=== PATIENT | male | born 1960 | race Caucasian/White ===

== ENCOUNTER → 2024-05-17 08:53 | Outpatient (REF) | payer MEDICAID, SELFPAY | LOC: HO.SL 08:53 | PROVIDERS: PCP Family Medicine; Visit Provider Psychiatry & Neurology Neurology | DX: R06.83 Snoring (principal) | CPT/HCPCS: 95806 ==

== ENCOUNTER → 2024-05-17 19:00 | Outpatient (BNV) | payer MEDICAID, SELFPAY | PROVIDERS: PCP Family Medicine; Visit Provider Internal Medicine | DX: R06.83 Snoring (principal); G47.10 Hypersomnia, unspecified | CPT/HCPCS: 95806 ==

== ENCOUNTER 2025-03-03 10:29 | Outpatient (AMB) | payer MEDICAID, SELFPAY ==
--- NOTE | 2025-03-03 10:31 | A.OFFVIS_ITS ---
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 (He started having complex partial, and secondarily generalized seizures in mid- with right hemispheric focus. His seizures included flashes of light, de ja vu feeling, and also generalized convulsions. He was noted to have a right occipital area cerebral lesion, and had epilepsy surgery that did not completely eliminate seizures. It resulted in cognitive difficulties. He also has anxiety disorder, Factor V leidin mutation, and history of DVT and PE.) He is presenting with concerns regarding progressive tremor. The progression of the tremor began with minimal symptoms three months ago, characterized by a slight bopping of the head. The condition has since advanced to substantial shaking in both the head and right arm. Symptoms are aggravated by activities such as driving, where increased stress augments the tremors. Additionally, an increase in nocturnal snoring and throat clearing frequency have been observed, though no episodes of choking have been reported. He is currently on Depakote among other medications to manage symptoms, and he describes emotional stress as a factor that intensifies the tremor. [facility] Medical History (Updated 03/03/25 @ 10:44 by Kristopher Dumont MD) Benign essential tremor Anxiety and depression Mild dementia ARINA on CPAP Epilepsy Encephalomalacia MCI (mild cognitive impairment) Migraine Seizure disorder Surgical History (Updated 02/25/25 @ 08:11 by Pool Moore CMA) S/P craniotomy Review of Systems Const Details: - Neurological: Reports head and right arm tremor; denies choking or difficulties aside from tremor. - Respiratory: Denies issues besides increased throat clearing and worsening snoring at night. - General: Denies green skin, kidney problems, or diabetes; denies metal in the body, pacemaker use, or allergies to contrast. Physical Exam Neuro Other: Mental Status: Alert and oriented to person, place, and time. Normal attention. Normal spontaneous speech, fluency, and comprehension. Cranial Nerves: CN II: Visual jolley full to confrontation, visual acuity intact. CN III, IV, : Pupils equal, round, reactive to light and accommodation. Extraocular movements are normal. CN V: Facial sensation is normal. CN VII: Facial movements symmetrical. CN VIII: Hearing intact to bedside conversation is normal. CN IX, X: Palate elevates symmetrically. CN XI: Shoulder shrug and head turn symmetrical. CN XII: Tongue midline without atrophy or fasciculations. Moderate head and righrt hand/arm tremor, somewhat atypical, both at rest and action, worsens when I pay attention or try to examine him, when it also appears in his left hand. Speech: Normal; no dysarthria or tremor. Assessment & Plan Assessment & Plan (1) Epilepsy: Comment: Meds tried: Depakote, Ox carbamazepine, Dilantin, Neurontin, Tegretal, Home PSG at [facility] in Apr 2024: TST RIVERA 0 CTA brain and neck at [facility] in 2019: No vascular lesion, atrophy MRI brain WWO at [facility] in Jul 2016: Right occipital periventricular encephalomalacia, mild MV MRI C spine at [facility] in Jul 2016: Mild spondylosis Routine EEG at office in May 2016: mildly abnormal, R sharp and slow wave complexes Routine EEG at office in 2010: mildly abnormal, ?left temp irritability Off NS testing in 2023: Mild cognitive dysfunction [place] [facility] [place]: right post medial parietal encephalomalacia Neuropsychological [place] 2006 [place] [facility] mild cognitive impairment nonspecific type. PSG at [facility] sleep disorder clinic in March of 2011: TST RDI 3.3 in REM RID 10.3. Lowest oxygen saturation was 89%. Snoring was light moderate. Code(s): G40.909 - Epilepsy, unspecified, not intractable, without status epilepticus Category: Medical Qualifiers: Epilepsy type: other generalized Intractability: intractable Status epilepticus: without status epilepticus Qualified Code(s): G40.419 - Other generalized epilepsy and epileptic syndromes, intractable, without status epilepticus (2) Depression with anxiety: Code(s): F41.8 - Other specified anxiety disorders Category: Medical (3) Multifactorial dementia: Code(s): F03.90 - Unspecified dementia, unspecified severity, without behavioral disturbance, psychotic disturbance, mood disturbance, and anxiety Category: Medical (4) Tremor: Code(s): R25.1 - Tremor, unspecified Category: Medical Plan Impression: a: Chronic epilepsy with mostly complex partial seizures,s/p right occipital area epilepsy surgery. b: Chronic anxiety and depression c: Tremor, which is somewhat atypical and has progressed in last few months d: Multifactorial cognitive issues. Rec: a: MRI brain to r/o any focal pathology explaing this new tremor b: Depakote level c: Depakote 250mg, 2 in am and 3 at night d: Oxcarbazepine 300mg, two twice a day e: Sertraline 50mg a day Orders: Orders MR head/brain wo/w con Today G40.419 - Other generalized epilepsy and epileptic syndromes, intractable, without status epilepticus, R25.1 - Tremor, unspecified Valproate Today G40.419 - Other generalized epilepsy and epileptic syndromes, intractable, without status epilepticus Liver Panel Today G40.419 - Other generalized epilepsy and epileptic syndromes, intractable, without status epilepticus Medications: New divalproex ER 250 mg orally 2 in am and 3 at night; 450 tabs 0RF Coding Level of Care Code Est Pt Level 5 (89690) Diagnoses Other generalized epilepsy, intractable, without status epilepticus G40.419 Epilepsy type: other generalized Intractability: intractable Status epilepticus: without status epilepticus Depression with anxiety F41.8 Multifactorial dementia F03.90 Tremor R25.1
--- OUTSIDE RECORDS SUMMARY | 2025-03-03 11:03 | XMS_ITS | Clinical Summary ---
Author Organization 175 [facility] Address 175 [place] [address] Phone Care Team Providers Care Interior Paneler Name Role Phone Oswald Stokes MD Primary Care Provider [phone] Allergies Active Allergy Reactions Criticality Noted Date Comments Codeine 01/27/2025 Penicillin 01/27/2025 Medications amLODIPine (NORVASC) 10 mg tablet Take by mouth 1 (one) time each day. Active carvediloL (COREG) 12.5 mg tablet Take by mouth 2 (two) times a day with meals. Active OXcarbazepine (TRILEPTAL) 300 mg tablet Take 1 tablet (300 mg total) by mouth 2 (two) times a day. Active warfarin (COUMADIN) 5 mg tablet Take by mouth 1 (one) time each day with dinner. Active divalproex (DEPAKOTE) [address] tablet Take 1 tablet (500 mg total) by mouth 3 (three) times a day. Do not crush, chew, or split. Active montelukast (SINGULAIR) 10 mg tablet Take 1 tablet (10 mg total) by mouth at bedtime. Active fluticasone furoate-vilanter oL (Breo Ellipta) 200-25 mcg/dose inhaler Inhale 1 puff by mouth 1 (one) time each day. 3 each 3 01/10/2025 5 Active umeclidinium (Incruse Ellipta) 62.5 mcg/actuation inhalation Inhale 1 puff by mouth 1 (one) time each day. 3 each 4 01/24/2025 6 Active sertraline (ZOLOFT) 50 mg tablet Take 1 tablet (50 mg total) by mouth 1 (one) time each day. Active albuterol HFA (Ventolin HFA) 90 mcg/actuation inhaler Inhale 2 puffs by mouth every 6 (six) hours if needed for wheezing. 6.7 g 11 01/27/2025 Active albuterol (PROVENTIL,ALEJANDRA JAYSHREE) 2 mg/5 mL syrup Take 5 mL (2 mg total) by mouth 4 (four) times a day. 1 mL 3 01/27/2025 Active Active Problems Problem Noted Date Diagnosed Date Asthma 12/23/2024 Parkinson's disease ([facility] V24, [facility] V28) 0 12/23/2024 Seizure ([facility] [place]24, [facility] V28) 12/23/2024 Thromboembolic disorder ([facility] V24, [facility] V2 8) 12/23/2024 Obesity 12/23/2024 Encounters Date Type Department Care Team Description 01/27/2025 1:15 PM EDT [facility] [address] [phone] Selena Elias MD Severe asthma without complication, unspecified whether persistent (Primary Dx); Recurrent pulmonary embolism ([facility] V24, [facility] V28); Class 1 obesity due to excess calories without serious comorbidity with body mass index (BMI) of 30.0 to 30.9 in adult; Primary hypertension [facility] [address] [phone] Selena Elias MD Med Refill [facility] [address] [phone] Selena Elias MD Medication Problem 12/23/[address] [phone] Consuelo Schuster MA Abstraction from Last 3 Months Social History Tobacco Use Types Packs/Day Years Used Date Smoking Tobacco: Never Assessed Sex and Gender Information Value Date Recorded Sex Assigned at Not on file Legal Sex Male 3:16 AM EST Gender Identity Not on file Sexual Orientation Not on file Last Filed Vital Signs Vital Sign Reading Time Taken Comments Blood Pressure 144/82 01/27/2025 1:09 PM EDT Pulse 70 01/27/2025 1:09 PM EDT Temperature 36.2 C (97.2 F) 01/27/2025 1:09 PM EDT Respiratory Rate - - Oxygen Saturation 99% 01/27/2025 1:09 PM EDT Inhaled Oxygen Concentration - - Weight 99.3 kg (219 lb) 01/27/2025 1:09 PM EDT Height 175.3 cm (5' 9 ) 01/27/2025 1:09 PM EDT Body Mass Index 32.34 01/27/2025 1:09 PM EDT Plan of Treatment Upcoming Encounters Date Type Department Care Team ([facility] st Contact Info) Description 04/28/2025 1:45 PM EDT Office Visit Pulmonolgy - [address] [phone] Selena Elias MD [address] [address] Health Maintenance Due Date Last Done Comments Zoster Vaccines (1 of 2) 2010 Pneumococcal Vaccine: 50+ Years (2 of 2 - PCV) 12/25/2013 12/25/2012, 03/15/2007 RSV Immunization Adult Patients (1 - Risk 60-74 years 1-dose series) 2020 COVID-19 Vaccine ( season) 2024 09/08/2021, 11/13/2020, 10/23/2020, Additional history exists Depression Screening 07/28/2024 DTaP,Tdap,and Td Vaccines (2 - Td or Tdap) 08/04/2024 08/04/2014 Cholesterol Screening (Lipid Panel) 12/09/2024 Colorectal Cancer Screening: Colonoscopy 12/09/2024 HIV Screening 12/09/2024 Hepatitis C Screening 12/09/2024 Medicare Annual Wellness Visit 12/09/2024 Social Influencers of Health Screening 12/09/2024 Hypertension/CHF/CAD Annual BMP Blood Test 01/27/2025 Influenza Vaccine (#1) 2025 4, 04/22/2022, 05/16/2021, Additional history exists HIB Vaccines Aged Out No longer eligi ble based on patient's age to complete this topic HPV Vaccines Aged Out No longer eligi ble based on patient's age to complete this topic Hepatitis A Vaccines Aged Out No long er eligible based on patient's age to complete this topic Hepatitis B Vaccines Aged Out No long er eligible based on patient's age to complete this topic IPV Vaccines Aged Out No longer eligi ble based on patient's age to complete this topic MMR Vaccines Aged Out No longer eligi ble based on patient's age to complete this topic Meningococcal ACWY Vaccine Aged Out N o longer eligible based on patient's age to complete this topic Meningococcal B Vaccine Aged Out No l onger eligible based on patient's age to complete this topic RSV Immunization Patients Under 20 months Aged Out No longer eligible based on patient's age to complete this topic Varicella Vaccines Aged Out No longer eligible based on patient's age to complete this topic Insurance [place] Care Teams Interior Paneler Relationship Specialty Start Date End Date Oswald Stokes MD [address] [place] [address] PCP - General Family Medicine 01/27/25
--- OUTSIDE RECORDS SUMMARY | 2025-03-03 11:03 | XMS_ITS | Clinical Summary ---
Author Organization [facility] Address [address] [place] [address] Care Team Providers Care Comb Setter Name Role Phone Unavailable Primary Care Provider Unavailabl e Source Comments PLEASE NOTE, if this patient is a minor, it may be UNLAWFUL to discuss sensitive information that is contained in these records (such as FAMILY PLANNING, MENTAL HEALTH or SUBSTANCE ABUSE) with the minor patient's parent or other person without the patient's specific authorization.[facility] Immunizations Immunization Administration Dates Next Due Moderna COVID-19 Vaccine, re d cap blue label, 12+ Primary Series 11/13/2020,10/16/2020 Social History Tobacco Use Types Packs/Day Years Used Date Smoking Tobacco: Never Assessed Social Connections Answer Date Recorded Social Connections and Isolation 0 10/16/2020 Financial Resource Strain Answer Date R ecorded Financial Resource Strain 0 2020 Stress Answer Date Recorded Stress 0 10/16/2020 Physical Activity Answer Date Recorded Physical Activity 0 10/16/2020 Food Insecurity Answer Date Recorded Food 0 10/16/2020 Transportation Needs Answer Date Record ed Transportation 0 10/16/2020 Housing Stability Answer Date Recorded Housing 0 10/16/2020 Safety and Environment Answer Date Wilver rded Safety 0 10/16/2020 Utilities Answer Date Recorded Utilities 0 10/16/2020 Employment Answer Date Recorded Employment 0 10/16/2020 Sex and Gender Information Value Date Recorded Sex Assigned at Not on file Legal Sex Male 11:13 AM PDT Gender Identity Not on file Sexual Orientation Not on file Plan of Treatment Health Maintenance Due Date Last Done Comments Anxiety Screening 1960 Diabetes Screening 1960 Hepatitis C Screening 1960 Lipid Screening 1960 Tobacco Screening 1960 HIV Screening 1975 Hypertension Screening (#1) 1978 Medicare Annual Wellness Visit 1978 Imm-DTaP/Tdap/Td (1 - Tdap) 1979 CT Colonography 2005 Colonoscopy 2005 Colorectal Cancer Screening 2005 FIT/gFOBT 2005 Fecal DNA 2005 Flexible Sigmoidoscopy 2005 Imm-Pneumococcal 50+ (1 of 1 - PCV) 2010 Imm-Zoster, Recombinant (1 of 2) 2010 Cdq-[id number] (3 - season) 03/28/202411/13/ 021, 10/16/2020 Alcohol and Drug Screen 07/28/2024 Depression Annual Screen 07/28/2024 Imm-Influenza (#1) 2025 [place]
--- OUTSIDE RECORDS SUMMARY | 2025-03-03 11:03 | XMS_ITS | Encounter Summary ---
Author Organization [facility], Address [address] [place] [address] Phone Care Team Providers Care Shuttle Truck Driver Name Role Phone Oswald Stokes MD Primary Care Provider +1- [phone] Encounter Details Date Type Department Care Team (Late st Contact Info) Description 10/17/2023 Documentation Only [facility], [address] [place] [address] Nela Patterson [address] [place] [address] Social History Tobacco Use Types Packs/Day Years Used Date Smoking Tobacco: Never Smokeless Tobacco: Never Alcohol Use Standard Drinks/Week Comments No 0 (1 standard drink = 0.6 oz pur e alcohol) Sex and Gender Information Value Date Recorded Sex Assigned at Not on file Legal Sex Male 4:37 PM EST Gender Identity Not on file Sexual Orientation Not on file documented as of this encounter Plan of Treatment Not on file documented as of this encounter Visit Diagnoses Not on filedocumented in this encounter Care Teams Shuttle Truck Driver Relationship Specialty Start Date End Date Oswald Stokes MD [address] [facility] [place] [address] PCP - General Family Medicine 07/17/21 documented as of this encounter
== END 2025-03-03 10:55 | disposition home or self-care (01) ==
LOC: HO.HSM 10:30
PROVIDERS: PCP Family Medicine; Referring Provider Family Medicine; Visit Provider Psychiatry & Neurology Neurology
DX: G40.419 Other generalized epilepsy and epileptic syndromes, intractable, without status epilepticus (principal); F41.8 Other specified anxiety disorders; F03.90 Unspecified dementia, unspecified severity, without behavioral disturbance, psychotic disturbance, mood disturbance, and anxiety; R25.1 Tremor, unspecified
CPT/HCPCS: 99214

== ENCOUNTER 2025-03-03 10:29 | Outpatient (REF) | payer MEDICAID, SELFPAY ==
[2025-03-03 12:23] LABS: Alanine Aminotransferase 53 U/L (0-40); Albumin Level 4.4 g/dL (3.5-5.0); Alkaline Phosphatase 200 U/L (39-117); Aspartate Amino Transferase 44 U/L (5-37); Total Protein 7.5 g/dL (6.5-8.0)
== END 2025-03-03 10:30 | disposition home or self-care (01) ==
LOC: HO.LAB 10:29
PROVIDERS: PCP Family Medicine; Referring Provider Family Medicine; Visit Provider Psychiatry & Neurology Neurology
DX: G40.419 Other generalized epilepsy and epileptic syndromes, intractable, without status epilepticus (principal); F41.8 Other specified anxiety disorders; F03.94 Unspecified dementia, unspecified severity, with anxiety; R25.1 Tremor, unspecified
CPT/HCPCS: 36415; 80076; 80164; 99212

== ENCOUNTER 2025-03-11 18:32 | Outpatient (REF) | payer MEDICAID, SELFPAY ==
--- NOTE | ~2025-03-11 | MR_ITS ---
EXAMINATION: MR BRAIN WITHOUT AND WITH CONTRAST CLINICAL INFORMATION: Generalized epilepsy COMPARISON: MRI from an outside institution dated 05/22/2018. TECHNIQUE: Multiplanar, multisequence MRI of the brain was obtained before and after the intravenous administration of 10.0 mL gadolinium based without reported immediate complications. FINDINGS: No restricted diffusion. No intra-axial or extra-axial enhancing mass nor abnormal enhancement. There is a focal encephalomalacia, right midline splenium corpus callosum extending into the deep periventricular white matter right parietal/right precuneus. There is hyperintense T2 FLAIR signal extending from the right midline splenium corpus callosum to the deep white matter right parietal lobe and ex vacuo dilatation of the right atrium and the occipital horn right lateral ventricle. No acute intracranial hemorrhage, mass effect, midline shift, hydrocephalus or herniation. Bilateral multifocal patchy and confluent deep periventricular white matter hyperintense T2 FLAIR signal involving centrum semiovale and mercado radiata. Rick-white matter differentiation is normal. Old lacunar infarct, pulvinar , right thalamus. Prominence of the extra-axial CSF spaces cerebral sulci and ventricles likely central volume loss. Flow-void signal within the main cerebral vessels is normal. No signal abnormality or gross volume loss in the hippocampi. Sellar/suprasellar region demonstrated no signal abnormality or enhancing lesion. Normal position of the cerebellar tonsils. MR/MR head/brain wo/w con IMPRESSION: Encephalomalacia and likely wallerian degeneration, right midline splenium corpus callosum none into the white matter right parietal/right precuneus. Consider prior vascular insult. No abnormal enhancement. No acute stroke/nonhemorrhagic ischemia. Small vessel occlusive disease. Global cerebral atrophy. Electronically signed by: Manoj Hurtado MD 03/14/2025 07:34 AM EDT
--- OUTSIDE RECORDS SUMMARY | 2025-03-11 18:34 | XMS_ITS | Clinical Summary ---
Author Organization 175 [facility] Address [address] [place] [address] Phone Care Team Providers Care Public Address System Installer Name Role Phone Oswald Stokes MD Primary Care Provider +1- [phone] Allergies Active Allergy Reactions Criticality Noted Date [...] Date Diagnosed Date Asthma 12/23/2024 Parkinson's disease ([facility] V24, [facility] V28) 0 12/23/2024 Seizure ([facility] V24, [facility] V28) 12/23/2024 Thromboembolic disorder ([facility] V24, [facility] V2 8) 12/23/2024 Obesity 12/23/2024 Encounters Date Type Department Care Team Description 01/27/2025 1:15 PM EDT [facility] [address] [phone] Selena Elias MD Severe asthma without complication, unspecified whether persistent (Primary Dx); Recurrent pulmonary embolism ([facility] V24, [facility] V28); Class 1 obesity due to excess calories without serious comorbidity with body mass index (BMI) of 30.0 to 30.9 in adult; Primary hypertension [facility] [address] [phone] Selena Elias MD Med Refill [facility] [address] [phone] Selena Elias MD Medication Problem 12/23/[address] [phone] Consuelo Schuster MA Abstraction from [...] Upcoming Encounters Date Type Department Care Team ([facility] st Contact Info) Description 04/28/2025 1:45 PM EDT Office Visit Pulmonolgy - [address] [phone] Selena Elias MD [address] [address] Health Maintenance Due Date Last Done Comments [...] [place] Care Teams Public Address System Installer Relationship Specialty Start Date End Date Oswald Stokes MD [address] [place] [address] PCP - General Family Medicine 01/27/25
--- OUTSIDE RECORDS SUMMARY | 2025-03-11 18:34 | XMS_ITS | Clinical Summary ---
Author Organization [facility] Address [address] [place] [address] Care Team Providers Care Barrel Turner Name Role Phone Unavailable Primary Care Provider [...] 2010 Imm-Zoster, Recombinant (1 of 2) 2010 [id number]-37 (3 - season) 03/28/202411/13/ 021, 10/16/2020 Alcohol and Drug Screen 07/28/2024 Depression Annual Screen 07/28/2024 Imm-Influenza (#1) 2025 [place]
--- OUTSIDE RECORDS SUMMARY | 2025-04-07 20:00 | XMS_ITS | Clinical Summary ---
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 [id number] MEDICARE - NGS [place] - PDGM [id number] Problems Condition Name Condition Details Condition Category [...] 10 mg tablet 04-26 00:00: 00 Yes [id number] 1 tablet DAILY 1 tablet DAILY (route: oral) Alternate Route: PO. Med Classific ation: Cardiovas cular Therapy Agents Breo Ellipta 200 mcg-25 mcg/dose powder for inhalation 2018-07 00:00: 00 Yes [id number] 1 inhalat ion DAILY 1 inhalation DAILY (route: inhalation ) Med Classific ation: Respirato ry Therapy Agents carvedilol 12.5 mg tablet 9-30 00:00: 00 Yes [id number] 1 tablet 2 TIMES DAILY 1 tablet 2 TIMES DAILY (route: oral) Alternate Route: PO. Med Classific ation: Cardiovas cular Therapy Agents divalproex 250 mg tablet,foreign yed release 2-12 00:00: 00 Yes [id number] Per instruc tions TWICE DAILY Per instructio ns TWICE DAILY (route: oral) Med Classific ation: Central Nervous System Agents oxcarbazepi ne 300 mg tablet 03-30 00:00: 00 06-04 23:59 :00 No [id number] Per instruc tions 2 TIMES DAILY Per instructio ns 2 TIMES DAILY (route: oral) Alternate Route: PO. Med Classific ation: Central Nervous System Agents warfarin 5 mg tablet 01-31 00:00: 00 05-03 23:59 :00 No [id number] Per instruc tions DIRECTED Per instructio ns DIRECTED (route: oral) Med Classific ation: Hematolog ical Agents warfarin 1 mg tablet 01-31 00:00: 00 05-03 23:59 :00 No [id number] Per instruc tions DIRECTED Per instructio ns DIRECTED (route: oral) Med Classific ation: Hematolog ical Agents warfarin 1 mg tablet 2019-07 0 00:00: 00 02-26 23:59 :00 No [id number] Per instruc tions DAILY Per instructio ns DAILY (route: oral) Med Classific ation: Hematolog ical Agents warfarin 5 mg tablet 2019-07 0- 00:00: 00 02-26 23:59 :00 No [id number] Per instruc tions DAILY Per instructio ns DAILY (route: oral) Med Classific ation: Hematolog ical Agents montelukast 10 mg tablet 2019-07 00:00: 00 Yes [id number] 1 tablet DAILY 1 tablet DAILY (route: oral) Med Classific ation: Respirato ry Therapy Agents Spiriva Respimat 1.25 mcg/actuati on solution for inhalation 2019-07 00:00: 00 12-08 23:59 :00 No [id number] 2 puff DAILY 2 puff DAILY (route: inhalation ) Med Classific ation: Respirato ry Therapy Agents Aspirin Childrens 81 mg chewable tablet 09-02 00:00: 00 04-26 23:59 :00 No [id number] 1 tablet DAILY 1 tablet DAILY (route: oral) Med Classific ation: Hematolog ical Agents atorvastati n 40 mg tablet 2020-07 00:00: 00 Yes [id number] 1 tablet BEDTIME 1 tablet BEDTIME (route: oral) Med Classific ation: Cardiovas cular Therapy Agents sertraline 25 mg tablet 02-19 00:00: 00 07-13 23:59 :00 No [id number] 1 tablet DAILY 1 tablet DAILY (route: oral) Med Classific ation: Central Nervous System Agents oxcarbazepi ne 300 mg tablet 2021-07 00:00: 00 Yes [id number] 2 tablet 2 TIMES DAILY 2 tablet 2 TIMES DAILY (route: oral) Med Classific ation: Central Nervous System Agents warfarin 5 mg tablet 12-15 00:00: 00 12-21 23:59 :00 No [id number] 1 tablet BEDTIME 1 tablet BEDTIME (route: oral) Med Classific ation: Hematolog ical Agents warfarin 5 mg tablet 16 00:00: 00 02-09 23:59 :00 No [id number] 1.5 tablet DIRECTED 1.5 tablet DIRECTED (route: oral) Med Classific ation: Hematolog ical Agents warfarin 5 mg tablet 17 00:00: 00 02-15 23:59 :00 No [id number] 1 tablet DAILY 1 tablet DAILY (route: oral) Med Classific ation: Hematolog ical Agents warfarin 5 mg tablet 8-02 00:00: 00 03-08 23:59 :00 No [id number] 1 tablet BEDTIME 1 tablet BEDTIME (route: oral) Med Classific ation: Hematolog ical Agents warfarin 5 mg tablet 8-13 00:00: 00 03-18 23:59 :00 No [id number] 1 tablet BEDTIME 1 tablet BEDTIME (route: oral) Med Classific ation: Hematolog ical Agents warfarin 5 mg tablet 8-27 00:00: 00 04-05 23:59 :00 No [id number] 1 tablet DAILY 1 tablet DAILY (route: oral) Med Classific ation: Hematolog ical Agents warfarin 5 mg tablet 2023-07 0- 00:00: 00 05-25 23:59 :00 No [id number] 1 tablet DAILY 1 tablet DAILY (route: oral) Med Classific ation: Hematolog ical Agents warfarin 5 mg tablet 2023-07 0-29 00:00: 00 06-07 23:59 :00 No [id number] 1 tablet DAILY 1 tablet DAILY (route: oral) Med Classific ation: Hematolog ical Agents warfarin 5 mg tablet 2023-07 2-03 00:00: 00 09-01 23:59 :00 No [id number] Per instruc tions DIRECTED Per instructio ns DIRECTED (route: oral) Med Classific ation: Hematolog ical Agents sertraline 25 mg tablet 2023-07 2-16 00:00: 00 Yes [id number] 1 tablet 2 TIMES DAILY 1 tablet 2 TIMES DAILY (route: oral) Med Classific ation: Central Nervous System Agents warfarin 5 mg tablet 2-05 00:00: 00 11-24 23:59 :00 No [id number] 1 tablet DAILY 1 tablet DAILY (route: oral) Med Classific ation: Hematolog ical Agents warfarin 2.5 mg tablet 5-02 00:00: 00 11-30 23:59 :00 No 1 tablet EVERY PM 1 tablet EVERY PM (route: oral) Med Classific ation: Hematolog ical Agents warfarin 5 mg tablet 4-30 00:00: 00 11-25 23:59 :00 No 1.5 tablet EVERY PM 1.5 tablet EVERY PM (route: oral) Med Classific ation: Hematolog ical Agents warfarin 5 mg tablet 02 00:00: 00 11-30 23:59 :00 No 1 tablet EVERY PM 1 tablet EVERY PM (route: oral) Med Classific ation: Hematolog ical Agents warfarin 5 mg tablet 12-01 00:00: 00 12-01 23:59 :00 No [id number] 7.5 mg EVERY PM 7.5 mg EVERY PM (route: oral) Med Classific ation: Hematolog ical Agents warfarin 5 mg tablet 08 00:00: 00 12-07 23:59 :00 No [id number] 1 tablet EVERY PM 1 tablet EVERY PM (route: oral) Med Classific ation: Hematolog ical Agents Incruse Ellipta 62.5 mcg/actuati on powder for inhalation 16 00:00: 00 Yes [id number] 1 inhalat ion DAILY 1 inhalation DAILY (route: inhalation ) Med Classific ation: Respirato ry Therapy Agents warfarin 5 mg tablet - 00:00: 00 12-22 23:59 :00 No [id number] 1.5 tablet EVERY PM 1.5 tablet EVERY PM (route: oral) Med Classific ation: Hematolog ical Agents warfarin 5 mg tablet 12-16 00:00: 00 12-21 23:59 :00 No [id number] 1 tablet EVERY PM 1 tablet EVERY PM (route: oral) Med Classific ation: Hematolog ical Agents warfarin 5 mg tablet 12-22 00:00: 00 12-22 23:59 :00 No 1.5 tablet DIRECTED 1.5 tablet DIRECTED (route: oral) Med Classific ation: Hematolog ical Agents warfarin 5 mg tablet 12-23 00:00: 00 12-28 23:59 :00 No 1 tablet DIRECTED 1 tablet DIRECTED (route: oral) Med Classific ation: Hematolog ical Agents warfarin 5 mg tablet 0 6-04 00:00: 00 12-29 23:59 :00 No [id number] 1.5 tablet EVERY PM 1.5 tablet EVERY PM (route: oral) Med Classific ation: Hematolog ical Agents warfarin 5 mg tablet 0 6-05 00:00: 00 01-04 23:59 :00 No [id number] 1 tablet EVERY PM 1 tablet EVERY PM (route: oral) Med Classific ation: Hematolog ical Agents warfarin 5 mg tablet 0 6-18 00:00: 00 01-18 23:59 :00 No [id number] 1 tablet EVERY PM 1 tablet EVERY PM (route: oral) Med Classific ation: Hematolog ical Agents warfarin 5 mg tablet 0 6-25 00:00: 00 01-25 23:59 :00 No [id number] 1 tablet EVERY PM 1 tablet EVERY PM (route: oral) Med Classific ation: Hematolog ical Agents warfarin 5 mg tablet 0 7-02 00:00: 00 01-27 23:59 :00 No [id number] 1.5 tablet EVERY PM 1.5 tablet EVERY PM (route: oral) Med Classific ation: Hematolog ical Agents warfarin 5 mg tablet 0 7-04 00:00: 00 02-01 23:59 :00 No [id number] 1 tablet EVERY PM 1 tablet EVERY PM (route: oral) Med Classific ation: Hematolog ical Agents warfarin 5 mg tablet 0 7-09 00:00: 00 02-02 23:59 :00 No [id number] 1.5 tablet EVERY PM 1.5 tablet EVERY PM (route: oral) Med Classific ation: Hematolog ical Agents warfarin 5 mg tablet 0 7-10 00:00: 00 02-08 23:59 :00 No [id number] 1 tablet EVERY PM 1 tablet EVERY PM (route: oral) Med Classific ation: Hematolog ical Agents warfarin 5 mg tablet 0 7-16 00:00: 00 02-15 23:59 :00 No [id number] 1 tablet EVERY PM 1 tablet EVERY PM (route: oral) Med Classific ation: Hematolog ical Agents warfarin 5 mg tablet 02-16 00:00: 00 03-03 23:59 :00 No [id number] 1.5 tablet EVERY PM 1.5 tablet EVERY PM (route: oral) Med Classific ation: Hematolog ical Agents warfarin 5 mg tablet 02-17 00:00: 00 02-22 23:59 :00 No [id number] 1 tablet EVERY PM 1 tablet EVERY PM (route: oral) Med Classific ation: Hematolog ical Agents warfarin 5 mg tablet 02-23 00:00: 00 03-01 23:59 :00 No [id number] 1 tablet EVERY PM 1 tablet EVERY PM (route: oral) Med Classific ation: Hematolog ical Agents warfarin 5 mg tablet 8- 00:00: 00 03-08 23:59 :00 No [id number] 1 tablet EVERY PM 1 tablet EVERY [...] ation: RESPIRATO RY THERAPY AGENTS MUCINEX ORAL 0 4-12 00:00: 00 01-31 00:00 :00 No 600 mg1 tab EVERY 12 HOURS 600 mg1 tab EVERY 12 HOURS (route: ) Med Classific ation: RESPIRATO RY THERAPY AGENTS Vital Signs Vital Name Observation Time Observation Value Commen ts Temperature 2025-03-09 10:29:00.000 97.6 [degF] Temperature 2025-03-02 12:37:00.000 97.8 [degF] Temperature 2025-02-23 12:56:00.000 98.7 [degF] Temperature 2025-02-16 08:16:00.000 97.4 [degF] Temperature 2025-02-09 10:40:00.000 97.5 [degF] Pulse 2025-03-09 10:29:00.000 59 /min Pulse 2025-03-02 12:37:00.000 61 /min Pulse 2025-02-23 12:56:00.000 96 /min Pulse 2025-02-16 08:16:00.000 71 /min Pulse 2025-02-09 10:40:00.000 61 /min O2 Saturation (%) 2025-03-09 10:33:00.000 96 % O2 Saturation (%) 2025-03-02 12:39:00.000 95 % O2 Saturation (%) 2025-02-23 12:56:00.000 96 % O2 Saturation (%) 2025-02-16 08:16:00.000 95 % O2 Saturation (%) 2025-02-09 10:40:00.000 96 % Respirations 2025-03-09 10:29:00.000 18 /min Respirations 2025-03-02 12:37:00.000 18 /min Respirations 2025-02-23 12:56:00.000 18 /min Respirations 2025-02-16 08:16:00.000 18 /min Respirations 2025-02-09 10:40:00.000 18 /min Systolic Blood Pressure 2025-03-09 10:29:00.000 122 mm [Hg] Systolic Blood Pressure 2025-03-02 12:40:00.000 122 mm [Hg] Systolic Blood Pressure 2025-02-23 12:56:00.000 110 mm [Hg] Systolic Blood Pressure 2025-02-16 08:18:00.000 120 mm [Hg] Systolic Blood Pressure 2025-02-09 10:43:00.000 132 mm [Hg] Diastolic Blood Pressure 2025-03-09 10:29:00.000 [...] Scheduled Test SKILLED NU RSE TO ASSESS PATIENTS PSYCHOSOCIAL STATUS TO IDENTIFY POTENTIAL ISSUES THAT MAY COMPLICATE THE PROVISION OF THE PLAN OF CARE INCLUDING THE PATIENTS ABILITY TO ACCESS COMMUNITY RESOURCES AND PSYCHOSOCIAL SUPPORT SERVICES. [code = SKILLED NURSE TO ASSESS PATIENTS PSYCHOSOCIAL STATUS TO IDENTIFY POTENTIAL ISSUES THAT MAY COMPLICATE THE PROVISION OF THE PLAN OF CARE INCLUDING THE PATIENTS ABILITY TO ACCESS COMMUNITY RESOURCES AND PSYCHOSOCIAL SUPPORT SERVICES.] Future Scheduled Test SKILLED NU RSE WILL MAINTAIN SITUATIONAL AWARENESS FOR SAFETY AND WILL NOTIFY CLINICAL WASHER MEAT AND PHYSICIAN/PROVIDER WITH ANY CHANGE IN CONDITION. [code = SKILLED NURSE WILL MAINTAIN SITUATIONAL AWARENESS FOR SAFETY AND WILL NOTIFY CLINICAL WASHER MEAT AND PHYSICIAN/PROVIDER WITH ANY CHANGE IN CONDITION.] Goal 2019-07-06 Patient Goal - B E ABLE TO TAKE MEDICATIONS Goal 2019-09-07 Patient Goal - B E ABLE TO TAKE MEDICATIONS Goal 2019-11-02 Patient Goal [...] ABLE TO REMEMBER TO TAKE MEDICATIONS Goal 2024-04-13 Patient Goal [...] ABLE TO REMEMBER TO TAKE MEDICATIONS Goal Patient Goal - B E ABLE TO REMEMBER TO TAKE MEDICATIONS Goal Provider Goal - A PLAN OF CARE WILL BE ESTABLISHED THAT MEETS PATIENT'S NURSING HOME NEEDS AND INCLUDES PATIENT GOAL FOR HOME [...] SELF AND OTHERS THROUGHOUT THE CERTIFICATION PERIOD. Encounters Start Date/Time End Date/Time Encounter Type Admission Type Attending Clinicians Care Facility Care Department Encounter ID Discharge Date Discharge Status Discharge Condition Discharge Reason Percent Goals Met 2025-02-08 00:00:00 2025-04-08 00:00:00 Outpatient RECERTIFIC ATION [facility]IQUIS [facility] [id number] 51.85
== END 2025-03-11 18:33 | disposition home or self-care (01) ==
LOC: HO.MRI 18:32
PROVIDERS: PCP Family Medicine; Visit Provider Psychiatry & Neurology Neurology
DX: G40.419 Other generalized epilepsy and epileptic syndromes, intractable, without status epilepticus (principal); R25.1 Tremor, unspecified
CPT/HCPCS: 70553; A9585

== ENCOUNTER → 2025-03-11 18:38 | Outpatient (BNV) | payer MEDICAID, SELFPAY | PROVIDERS: PCP Family Medicine; Visit Provider Radiology Diagnostic Radiology | DX: G93.89 Other specified disorders of brain (principal); I67.82 Cerebral ischemia | CPT/HCPCS: 70553 ==

== ENCOUNTER 2025-04-07 15:30 | Outpatient (AMB) | payer MEDICAID, SELFPAY ==
--- NOTE | 2025-04-07 15:34 | A.OFFVIS_ITS ---
Intake Visit Reasons: mri follow up Allergies No Known Allergies Allergy (Verified 02/25/25 08:11) HPI Comments Details: 65 y/o man with chronic intractable epilepsy comprising complex partial and generalized, likely secondary generalized, seizures, s/p epilepsy surgery, chronic anxiety and depression, and multifactorial cognitive dysfunction. (He started having complex partial, and secondarily generalized seizures in mid- with right hemispheric focus. His seizures included flashes of light, de ja vu feeling, and also generalized convulsions. He was noted to have a right occipital area cerebral lesion, and had epilepsy surgery that did not completely eliminate seizures. It resulted in cognitive difficulties. He also has anxiety disorder, Factor V leidin mutation, and history of DVT and PE.) [facility] Medical History (Updated 04/07/25 @ 15:42 by Kristopher Dumont MD) Benign essential tremor Anxiety and depression Mild dementia ARINA on CPAP Epilepsy Encephalomalacia MCI (mild cognitive impairment) Migraine Seizure disorder Surgical History (Updated 02/25/25 @ 08:11 by Pool Moore CMA) S/P craniotomy Physical Exam Neuro Other: Mental Status: Alert and oriented to person, place, and time. Normal attention. Normal spontaneous speech, fluency, and comprehension. Cranial Nerves: CN II: Visual jolley full to confrontation, visual acuity intact. CN III, IV, : Pupils equal, round, reactive to light and accommodation. Extraocular movements are normal. CN V: Facial sensation is normal. CN VII: Facial movements symmetrical. CN VIII: Hearing intact to bedside conversation is normal. CN IX, X: Palate elevates symmetrically. CN XI: Shoulder shrug and head turn symmetrical. CN XII: Tongue midline without atrophy or fasciculations. Extrapyramidal: Full facial expressions and blinking. No rigidity. Movements are appropriate with no tremor or abnormality. Speech: Normal; no dysarthria or tremor. Assessment & Plan Assessment & Plan (1) Epilepsy: Comment: Meds tried: Depakote, Ox carbamazepine, Dilantin, Neurontin, Tegretal, MRI brain WO at [facility] in Feb 2025: No new lesion Home PSG at [facility] in Apr 2024: TST RIVERA 0 CTA brain and neck at [facility] in 2019: No vascular lesion, atrophy MRI brain WWO at [facility] in Jul 2016: Right occipital periventricular encephalomalacia, mild MV MRI C spine at [facility] in Jul 2016: Mild spondylosis Routine EEG at office in May 2016: mildly abnormal, R sharp and slow wave complexes Routine EEG at office in 2010: mildly abnormal, ?left temp irritability Off NS testing in 2023: Mild cognitive dysfunction MRI brain WWO at [facility] in 2010: right post medial parietal encephalomalacia Neuropsychological test in 2006 at [facility]: mild cognitive impairment nonspecific type. PSG at [facility] sleep disorder clinic in March of 2011: TST RDI 3.3 in REM RID 10.3. Lowest oxygen saturation was 89%. Snoring was light moderate. Code(s): G40.909 - Epilepsy, unspecified, not intractable, without status epilepticus Category: Medical Qualifiers: Epilepsy type: other generalized Intractability: intractable Status epilepticus: without status epilepticus Qualified Code(s): G40.419 - Other generalized epilepsy and epileptic syndromes, intractable, without status epilepticus (2) Multifactorial dementia: Code(s): F03.90 - Unspecified dementia, unspecified severity, without behavioral disturbance, psychotic disturbance, mood disturbance, and anxiety Category: Medical (3) Tremor: Code(s): R25.1 - Tremor, unspecified Category: Medical Plan Impression: a: Chronic epilepsy with mostly complex partial seizures,s/p right occipital area epilepsy surgery. b: Chronic anxiety and depression c: Tremor affecting his head, hands and speech, probably benign essential type d: Multifactorial cognitive issues. Rec: Depakote 250mg, 2 in am and 3 at night Oxcarbazepine 300mg, two twice a day Sertraline 50mg a day Clonazepam 0.25 one a day as needed Medications: New clonazepam (Klonopin) administer 30 minutes before bedtime 0.25 mg (1/2 x 0.5 mg) PO BEDTIME 90 tabs 0RF Coding Level of Care Code Est Pt Level 5 (02046) Diagnoses Other generalized epilepsy, intractable, without status epilepticus G40.419 Epilepsy type: other generalized Intractability: intractable Status epilepticus: without status epilepticus Multifactorial dementia F03.90 Tremor R25.1
--- OUTSIDE RECORDS SUMMARY | 2025-04-07 18:40 | XMS_ITS | Encounter Summary ---
Author Organization [facility], Address [address] [place] [address] Phone Care Team Providers Care Retail Manager Name Role Phone Oswald Stokes MD Primary Care Provider +1- [phone] Encounter Details Date Type Department Care Team (Late st Contact Info) Description 07/05/2020 Orders Only [facility] [address] [place] [address] Nabil Saucedo MD Essential hypertension; Acute injury of kidney (HCC) Social History Tobacco Use Types Packs/Day Years Used Date Smoking Tobacco: Never Alcohol Use Standard Drinks/Week Comments No 0 (1 standard drink = 0.6 oz pur e alcohol) Sex and Gender Information Value Date Recorded Sex Assigned at Not on file Legal Sex Male 4:37 PM EST Gender Identity Not on file Sexual Orientation Not on file documented as of this encounter Plan of Treatment Not on file documented as of this encounter Procedures Procedure Name Priority Date/Time Associated Diagnosis Comments URINALYSIS Routine 07/18/2020 11:32 AM EST Essential hypertension Acute injury of kidney (HCC) CBC Routine 07/18/2020 11:32 AM EST Essential hypertension Acute injury of kidney (HCC) RENAL FUNCTION PANEL Routine 07/18/2020 11:32 AM EST Essential hypertension Acute injury of kidney (HCC) documented in this encounter Results * (ABNORMAL) Urinalysis (07/18/2020 11:32 AM EST) Appearance LIGHT YELLOW [facility] Comment:CLEAR Specific [place]vere 1.022 (1.002-1. 030) [facility] pH Urine 6.0 (5.0-8.0) [facility] Albumin, Urine TRACE(A) (NEG) [facility] Glucose, Ur NEGATIVE (NEG) [facility] Ketones, Urine NEGATIVE (NEG) [facility] Urobilinogen Urine NORMAL (NORM) MG/DL [facility] Bilirubin Urine NEGATIVE (NEG) [facility] Hemoglobin Presence in Urine TRACE(A) (NEG) [facility] Nitrite, Urine NEGATIVE (NEG) [facility] Leukocyte Esterase Urine NEGATIVE (NEG) [facility] Comment: Testing performed or reported by [facility], a Service of [facility], [address] [place] [address] Doris Dang MD, Dj Instructor Urine specimen (specimen) Urine specimen obtained by clean catch procedure / Unknown 07/18/2020 11:32 AM EST 07/18/2020 11:35 AM EST us Nabil Saucedo MD LAB URINE ORDERABLES Final Resul t [facility] * (ABNORMAL) Renal function panel (07/18/2020 11:32 AM EST) Glucose 110(H) (70-99) MG/DL [facility] BUN 11 (8-23) MG/DL [facility] Creatinine 0.9 (0.7-1.2) MG/DL [facility] Sodium 141 (133-145) MMOL/L [facility] Potassium 4.3 (3.6-5.2) MMOL/L [facility] Chloride 104 (98-107) MMOL/L [facility] Bicarbonate (CO2) 24 (22-29) MMOL/L [facility] Anion Gap 13 (4-17) [facility] Albumin 4.6 (3.4-4.8) GM/DL [facility] Calcium 9.7 (8.6-10.5) MG/DL [facility] Phosphorus, Serum 2.5 (2.5-4.5) MG/DL [facility] Est GFR Non 94 ML/MIN/1.7 3 M2 [facility] EST GFR 109 ML/MIN/1.7 3 M2 [facility] Comment: Creatinine based estimated glomerular filtration rate (eGFR) is calculated using the Chronic Kidney Disease Epidemiology Collaboration (CKD-EPI). The CKD-EPI creatinine equation has not been validated in children (<18 years), women or in some racial or ethnic subgroups other than Caucasians and Americans. Testing performed or reported by [facility], a Service of [address] [address] Doris Dang MD, Dj Instructor Blood specimen (specimen) Venous blood / Unknown 07/18/2020 11:32 AM EST 07/18/2020 11:34 AM EST Nabil Saucedo MD LAB BLOOD ORDERABLES Final Resul t Performing Organization Address [facility] Co de Phone Number [facility] * CBC (07/18/2020 11:32 AM EST) White Blood Cells 8.3 (4.0-11.0) K/MM3 [facility] RBC 5.05 (4.70-6.10 ) M/MM3 [facility] Hgb 15.5 (13.7-17.1 ) GM/DL [facility] Hematocrit 46.5 (40.5-50.0 ) % [facility] MCV 92.1 (80.0-94.0 ) FL [facility] MCH 30.7 (27.0-34.0 ) PG [facility] MCHC 33.3 (33.0-37.0 ) g/dL [facility] Platelets 222 (150-460) K/MM3 [facility] RDW-SD 44.5 (<47.0) FL [facility] MPV 10.3 (9.4-12.4) FL [facility] nRBC Count 0.0 #/100 WBC'S [facility] NRBC Absolute 0.0 K/MM3 [facility] Comment: Testing performed or reported by [facility], a Service of [address] [address] Doris Dang MD, Dj Instructor Blood specimen (specimen) Venous blood / Unknown 07/18/2020 11:32 AM EST 07/18/2020 11:34 AM EST Nabil Saucedo MD LAB BLOOD ORDERABLES Final Resul t Performing Organization Address City/[facility]/ZIP Co de Phone Number [facility] documented in this encounter Visit Diagnoses Diagnosis Essential hypertension Acute injury of kidney documented in this encounter Care Teams Retail Manager Relationship Specialty Start Date End Date Oswald Stokes MD [address] [place] [address] PCP - General Family Medicine 07/17/21 documented as of this encounter
--- OUTSIDE RECORDS SUMMARY | 2025-04-07 18:40 | XMS_ITS | Encounter Summary ---
Author Organization [facility], Address [address] [place] [address] Phone Care Team Providers Care Veneer Grader Name Role Phone Oswald Stokes MD Primary Care Provider +1- [phone] Encounter Details Date Type Department Care Team (Late st Contact Info) Description 04/04/2025 Documentation Only [facility], [address] [place] [address] Nela Patterson [address] [place] [address] Social History Tobacco Use Types [...] on filedocumented in this encounter Care Teams Veneer Grader Relationship Specialty Start Date End Date Oswald Stokes MD [address] [facility] [place] [address] PCP - General Family Medicine 07/17/21 documented as of this encounter
--- OUTSIDE RECORDS SUMMARY | 2025-04-07 18:40 | XMS_ITS | Encounter Summary ---
Author Organization [facility], Address [address] [place] [address] Phone Care Team Providers Care Payroll Bookkeeper Name Role Phone Oswald Stokes MD Primary Care Provider +1- [phone] Encounter Details Date Type Department Care Team (Late st Contact Info) Description 10/17/2023 Documentation Only [facility], [address] [place] [address] Nela Patterson [address] [place] [address] Social History Tobacco Use Types [...] on filedocumented in this encounter Care Teams Payroll Bookkeeper Relationship Specialty Start Date End Date Oswald Stokes MD [address] [facility] [place] [address] PCP - General Family Medicine 07/17/21 documented as of this encounter
--- OUTSIDE RECORDS SUMMARY | 2025-04-07 18:40 | XMS_ITS | Clinical Summary ---
Author Organization [facility] Address [address] [place] [address] Care Team Providers Care Car Designer Name Role Phone Unavailable Primary Care Provider [...] 2010 Imm-Zoster, Recombinant (1 of 2) 2010 Alcohol and Drug Screen 07/28/2024 Depression Annual Screen 07/28/2024 [id number] (3 - season) 03/28/202511/13/ 021, 10/16/2020 Imm-Influenza (#1) 2025 Abdominal Aortic Aneurysm Screening 2025 Falls Prevention 2025 [place]
--- OUTSIDE RECORDS SUMMARY | 2025-04-07 18:40 | XMS_ITS | Clinical Summary ---
Author Organization [facility], Address [address] [place] [address] [place] [address] Phone Care Team Providers Care Soft Metals Hand Engraver Name Role Phone Oswald Stokes MD Primary Care Provider +1- [phone] Allergies Active Allergy Reactions Criticality Noted Date Comments Codeine Other (see comments) 02/20/2022 Medications warfarin (COUMADIN) 5 MG tablet Take 5 mg by mouth 1 (one) time each day 08/13/2016 Active divalproex (DEPAKOTE) 250 MG 24 hr tablet Take by mouth Active atorvastatin (LIPITOR) 40 MG tablet Take 40 mg by mouth 1 (one) time each day 11/13/2020 Active Breo Ellipta 200-25 MCG/INH aerosol powder Take 1 puff by mouth 1 (one) time each day 12/18/2020 Active montelukast (SINGULAIR) 10 MG tablet Take 10 mg by mouth 1 (one) time each day in the evening 12/18/2020 Active OXcarbazepine (TRILEPTAL) 300 MG tablet Take 450 mg by mouth twice a day 10/04/2020 Active sertraline (ZOLOFT) 25 MG tablet Take 25 mg by mouth 1 (one) time each day Active tiZANidine (ZANAFLEX) 4 MG tablet Take 4 mg by mouth every 8 (eight) hours Active amLODIPine (NORVASC) 10 MG tablet TAKE 1 TABLET(10 MG) BY MOUTH 1 TIME EACH DAY 90 tablet 3 07/19/2024 Active carvedilol (COREG) 12.5 MG tablet TAKE 1 TABLET(12.5 MG) BY MOUTH IN THE MORNING AND IN THE EVENING WITH MEALS 180 tablet 3 08/27/2024 Active Active Problems Problem Noted Date Diagnosed Date Chronic kidney disease, stage 2 (mild) 4 Acute nontraumatic kidney injury 10/17/2023 Acute tubular necrosis 10/17/2023 Hypertension 10/17/2023 Hematuria 10/17/2023 Hyperlipidemia 01/03/2020 Resolved Problems Problem Noted Date Diagnosed Date Resolved Date Gastroesophageal reflux disease 01/03/2020 01/03/2020 History of malignant neoplasm of brain 01/03/2020 01/03/2020 History of hypercoagulable state 01/03/2020 01/03/2020 Pulmonary embolism 01/03/2020 0 Overview (01/03/2020): History of Dizziness 01/03/2020 01/03/2020 Acute nontraumatic kidney injury 01/03/2020 01/03/2020 Encounters Date Type Department Care Team Description 04/04/2025 Documentation Only [facility], [address] [place] [address] Nela Patterson from Last 3 Months Immunizations Immunization Administration Dates Next Due Influenza, Unspecified 04/22/2022,2020,03/28/2018,04/14/2017,11/2016 Moderna SARS-COV-2 09/08/2021,11/13/2020, 021 Pfizer SARS-COV-2 10/23/2020 Pneumococcal Polysaccharide 12/25/2012, 7 Tdap 08/04/2014 Family History Relation Status Comments Father Unknown Mother Unknown Social History Tobacco Use Types Packs/Day Years [...] Sign Reading Time Taken Comments Blood Pressure 124/74 10/21/2023 2:20 PM EDT Pulse 64 02/04/2023 1:38 PM EDT Temperature - - Respiratory Rate - - Oxygen Saturation - - Inhaled Oxygen Concentration - - Weight 105 kg (231 lb) 12/28/2020 2:04 PM EDT Height 175.3 cm (5' 9 ) 06/29/2019 12:00 PM EST Body Mass Index 34.11 06/29/2019 12:00 PM EST Plan of Treatment Health Maintenance Due Date Last Done Comments Colorectal Cancer Screening: Annual FOBT 2009 Colorectal Cancer Screening: Colonoscopy 2009 Colorectal Cancer Screening: Sigmoidoscopy 2009 Pneumococcal Vaccine: 50+ Years (3 of 3 - PCV) 12/25/2013 12/25/2012, 03/15/2007 Influenza Vaccine (#1) 2025 , 04/22/2022, 05/16/2021, Additional history exists Pneumococcal Vaccine: Peds (0 to 5 Years) and At-Risk Patients (6 to 49 Years) Discontinued 12/25/2012, 03/15/2007 Hepatitis B Vaccine Aged Out No longe r eligible based on patient's age to complete this topic Insurance Medicaid [place] Care Teams Soft Metals Hand Engraver Relationship Specialty Start Date End Date Oswald Stokes MD [address] [place] [address] PCP - General Family Medicine 07/17/21
--- OUTSIDE RECORDS SUMMARY | 2025-04-07 18:40 | XMS_ITS | Encounter Summary ---
Author Organization [facility], Address [address] [place] [address] Phone Care Team Providers Care Breakfast Attendant Name Role Phone Oswald Stokes MD Primary Care Provider +1- [phone] Encounter Details Date Type Department Care Team (Late st Contact Info) Description 10/17/2023 Documentation Only [facility], [address] [place] [address] Nela Patterson [address] [place] [address] Social History Tobacco Use Types [...] on filedocumented in this encounter Care Teams Breakfast Attendant Relationship Specialty Start Date End Date Oswald Stokes MD [address] [facility] [place] [address] PCP - General Family Medicine 07/17/21 documented as of this encounter
--- OUTSIDE RECORDS SUMMARY | 2025-04-07 20:00 | XMS_ITS | Clinical Summary ---
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 Name Role Phone LEA KNAPP, MARCELLO Unavailable Unavailable BLADIMIR ROE, CHIQUIS Unavailable Unavailabl e Payers Payer Name Policy Type Policy Number Effective Date Expira tion Date [facility]ID [facility] [id number] MEDICARE - NGS [place] - PDGM [id number] Problems Condition Name Condition Details Condition Category Status Onset Date Resolution Date Last Treatment Date Treating Clinician Comments POST-TRAUMAT IC STRESS DISORDER, CHRONIC Active 2018-07 00:00: 00 NONPSYCHOTIC MENTAL DISORDER, UNSPECIFIED Active 07-28 00:00: 00 DEPRESSION, UNSPECIFIED Active 2018-07 00:00: 00 ANXIETY DISORDER, UNSPECIFIED Active 07-28 00:00: 00 ESSENTIAL (PRIMARY) HYPERTENSION Active 07-28 00:00: 00 ANEMIA, UNSPECIFIED Active 07-28 00:00: 00 EPILEPSY, UNSP, INTRACTABLE, WITHOUT STATUS EPILEPTICUS Active 07-28 00:00: 00 ACUTE EMBOLISM AND THOMBOS UNSP DEEP VN UNSP LOWER EXTREMITY Active 07-28 00:00: 00 HYPERLIPIDEM IA, UNSPECIFIED Active 07-28 00:00: 00 OBESITY, UNSPECIFIED Active 07-28 00:00: 00 PERSONAL HISTORY OF MALIGNANT NEOPLASM OF BRAIN Active 07-28 00:00: 00 VASCULAR DEMENTIA, MILD, WITHOUT BEH/PSYCH/MO OD/ANX Active 2023-07 00:00: 00 Allergies, Adverse Reactions, Alerts Allergy Name Allergy Type Status Severity Reaction(s) Onset Date Inactive Date Treating Clinician Comments NKA Propensity to adverse reactions Active 2019-04 10:31:1 9 Medications Ordered Medication Name Filled Medication Name Start Date Stop Date Current Medication? Ordering Clinician Indication Dosage Frequency Signature (SIG) Comments Components amlodipine 10 mg tablet 04-26 00:00: 00 Yes [id number] 1 tablet DAILY 1 tablet DAILY (route: oral) Alternate Route: PO. Med Classific ation: Cardiovas cular Therapy Agents Breo Ellipta 200 mcg-25 mcg/dose powder for inhalation 2018-07 00:00: 00 Yes [id number] 1 inhalat ion DAILY 1 inhalation DAILY (route: inhalation ) Med Classific ation: Respirato ry Therapy Agents carvedilol 12.5 mg tablet 9-30 00:00: 00 Yes [id number] 1 tablet 2 TIMES DAILY 1 tablet 2 TIMES DAILY (route: oral) Alternate Route: PO. Med Classific ation: Cardiovas cular Therapy Agents divalproex 250 mg tablet,foreign yed release 2-12 00:00: 00 Yes [id number] Per instruc tions TWICE DAILY Per instructio ns TWICE DAILY (route: oral) Med Classific ation: Central Nervous System Agents oxcarbazepi ne 300 mg tablet 03-30 00:00: 00 06-04 23:59 :00 No [id number] Per instruc tions 2 TIMES DAILY Per instructio ns 2 TIMES DAILY (route: oral) Alternate Route: PO. Med Classific ation: Central Nervous System Agents warfarin 5 mg tablet 01-31 00:00: 00 05-03 23:59 :00 No [id number] Per instruc tions DIRECTED Per instructio ns DIRECTED (route: oral) Med Classific ation: Hematolog ical Agents warfarin 1 mg tablet 01-31 00:00: 00 05-03 23:59 :00 No [id number] Per instruc tions DIRECTED Per instructio ns DIRECTED (route: oral) Med Classific ation: Hematolog ical Agents warfarin 1 mg tablet 2019-07 0 00:00: 00 02-26 23:59 :00 No [id number] Per instruc tions DAILY Per instructio ns DAILY (route: oral) Med Classific ation: Hematolog ical Agents warfarin 5 mg tablet 2019-07 0- 00:00: 00 02-26 23:59 :00 No [id number] Per instruc tions DAILY Per instructio ns DAILY (route: oral) Med Classific ation: Hematolog ical Agents montelukast 10 mg tablet 2019-07 00:00: 00 Yes [id number] 1 tablet DAILY 1 tablet DAILY (route: oral) Med Classific ation: Respirato ry Therapy Agents Spiriva Respimat 1.25 mcg/actuati on solution for inhalation 2019-07 00:00: 00 12-08 23:59 :00 No [id number] 2 puff DAILY 2 puff DAILY (route: inhalation ) Med Classific ation: Respirato ry Therapy Agents Aspirin Childrens 81 mg chewable tablet 09-02 00:00: 00 04-26 23:59 :00 No [id number] 1 tablet DAILY 1 tablet DAILY (route: oral) Med Classific ation: Hematolog ical Agents atorvastati n 40 mg tablet 2020-07 00:00: 00 Yes [id number] 1 tablet BEDTIME 1 tablet BEDTIME (route: oral) Med Classific ation: Cardiovas cular Therapy Agents sertraline 25 mg tablet 02-19 00:00: 00 07-13 23:59 :00 No [id number] 1 tablet DAILY 1 tablet DAILY (route: oral) Med Classific ation: Central Nervous System Agents oxcarbazepi ne 300 mg tablet 2021-07 00:00: 00 Yes [id number] 2 tablet 2 TIMES DAILY 2 tablet 2 TIMES DAILY (route: oral) Med Classific ation: Central Nervous System Agents warfarin 5 mg tablet 12-15 00:00: 00 12-21 23:59 :00 No [id number] 1 tablet BEDTIME 1 tablet BEDTIME (route: oral) Med Classific ation: Hematolog ical Agents warfarin 5 mg tablet 16 00:00: 00 02-09 23:59 :00 No [id number] 1.5 tablet DIRECTED 1.5 tablet DIRECTED (route: oral) Med Classific ation: Hematolog ical Agents warfarin 5 mg tablet 17 00:00: 00 02-15 23:59 :00 No [id number] 1 tablet DAILY 1 tablet DAILY (route: oral) Med Classific ation: Hematolog ical Agents warfarin 5 mg tablet 8-02 00:00: 00 03-08 23:59 :00 No [id number] 1 tablet BEDTIME 1 tablet BEDTIME (route: oral) Med Classific ation: Hematolog ical Agents warfarin 5 mg tablet 8-13 00:00: 00 03-18 23:59 :00 No [id number] 1 tablet BEDTIME 1 tablet BEDTIME (route: oral) Med Classific ation: Hematolog ical Agents warfarin 5 mg tablet 8-27 00:00: 00 04-05 23:59 :00 No [id number] 1 tablet DAILY 1 tablet DAILY (route: oral) Med Classific ation: Hematolog ical Agents warfarin 5 mg tablet 2023-07 0- 00:00: 00 05-25 23:59 :00 No [id number] 1 tablet DAILY 1 tablet DAILY (route: oral) Med Classific ation: Hematolog ical Agents warfarin 5 mg tablet 2023-07 0-29 00:00: 00 06-07 23:59 :00 No [id number] 1 tablet DAILY 1 tablet DAILY (route: oral) Med Classific ation: Hematolog ical Agents warfarin 5 mg tablet 2023-07 2-03 00:00: 00 09-01 23:59 :00 No [id number] Per instruc tions DIRECTED Per instructio ns DIRECTED (route: oral) Med Classific ation: Hematolog ical Agents sertraline 25 mg tablet 2023-07 2-16 00:00: 00 Yes [id number] 1 tablet 2 TIMES DAILY 1 tablet 2 TIMES DAILY (route: oral) Med Classific ation: Central Nervous System Agents warfarin 5 mg tablet 2-05 00:00: 00 11-24 23:59 :00 No [id number] 1 tablet DAILY 1 tablet DAILY (route: oral) Med Classific ation: Hematolog ical Agents warfarin 2.5 mg tablet 5-02 00:00: 00 11-30 23:59 :00 No [id number] 1 tablet EVERY PM 1 tablet EVERY PM (route: oral) Med Classific ation: Hematolog ical Agents warfarin 5 mg tablet 4-30 00:00: 00 11-25 23:59 :00 No [id number] 1.5 tablet EVERY PM 1.5 tablet EVERY PM (route: oral) Med Classific ation: Hematolog ical Agents warfarin 5 mg tablet 11-26 00:00: 00 11-30 23:59 :00 No [id number] 1 tablet EVERY PM 1 tablet EVERY PM (route: oral) Med Classific ation: Hematolog ical Agents warfarin 5 mg tablet 12-01 00:00: 00 12-01 23:59 :00 No [id number] 7.5 mg EVERY PM 7.5 mg EVERY PM (route: oral) Med Classific ation: Hematolog ical Agents warfarin 5 mg tablet 12-02 00:00: 00 12-07 23:59 :00 No [id number] 1 tablet EVERY PM 1 tablet EVERY PM (route: oral) Med Classific ation: Hematolog ical Agents Incruse Ellipta 62.5 mcg/actuati on powder for inhalation 16 00:00: 00 Yes [id number] 1 inhalat ion DAILY 1 inhalation DAILY (route: inhalation ) Med Classific ation: Respirato ry Therapy Agents warfarin 5 mg tablet 12-15 00:00: 00 12-22 23:59 :00 No [id number] 1.5 tablet EVERY PM 1.5 tablet EVERY PM (route: oral) Med Classific ation: Hematolog ical Agents warfarin 5 mg tablet 12-16 00:00: 00 12-21 23:59 :00 No [id number] 1 tablet EVERY PM 1 tablet EVERY PM (route: oral) Med Classific ation: Hematolog ical Agents warfarin 5 mg tablet 12-22 00:00: 00 12-22 23:59 :00 No [id number] 1.5 tablet DIRECTED 1.5 tablet DIRECTED (route: oral) Med Classific ation: Hematolog ical Agents warfarin 5 mg tablet 12-23 00:00: 00 12-28 23:59 :00 No [id number] 1 tablet DIRECTED 1 tablet DIRECTED (route: oral) Med Classific ation: Hematolog ical Agents warfarin 5 mg tablet 6-04 00:00: 00 12-29 23:59 :00 No [id number] 1.5 tablet EVERY PM 1.5 tablet EVERY PM (route: oral) Med Classific ation: Hematolog ical Agents warfarin 5 mg tablet 6-05 00:00: 00 01-04 23:59 :00 No [id number] 1 tablet EVERY PM 1 tablet EVERY PM (route: oral) Med Classific ation: Hematolog ical Agents warfarin 5 mg tablet 618 00:00: 00 01-18 23:59 :00 No [id number] 1 tablet EVERY PM 1 tablet EVERY PM (route: oral) Med Classific ation: Hematolog ical Agents warfarin 5 mg tablet 6-25 00:00: 00 01-25 23:59 :00 No [id number] 1 tablet EVERY PM 1 tablet EVERY PM (route: oral) Med Classific ation: Hematolog ical Agents warfarin 5 mg tablet - 00:00: 00 01-27 23:59 :00 No [id number] 1.5 tablet EVERY PM 1.5 tablet EVERY PM (route: oral) Med Classific ation: Hematolog ical Agents warfarin 5 mg tablet -04 00:00: 00 02-01 23:59 :00 No [id number] 1 tablet EVERY PM 1 tablet EVERY PM (route: oral) Med Classific ation: Hematolog ical Agents warfarin 5 mg tablet -09 00:00: 00 02-02 23:59 :00 No [id number] 1.5 tablet EVERY PM 1.5 tablet EVERY PM (route: oral) Med Classific ation: Hematolog ical Agents warfarin 5 mg tablet 7-10 00:00: 00 02-08 23:59 :00 No [id number] 1 tablet EVERY PM 1 tablet EVERY PM (route: oral) Med Classific ation: Hematolog ical Agents warfarin 5 mg tablet 0 7-16 00:00: 00 02-15 23:59 :00 No [id number] 1 tablet EVERY PM 1 tablet EVERY PM (route: oral) Med Classific ation: Hematolog ical Agents warfarin 5 mg tablet 0 7-23 00:00: 00 03-03 23:59 :00 No [id number] 1.5 tablet EVERY PM 1.5 tablet EVERY PM (route: oral) Med Classific ation: Hematolog ical Agents warfarin 5 mg tablet 0 7-24 00:00: 00 02-22 23:59 :00 No [id number] 1 tablet EVERY PM 1 tablet EVERY PM (route: oral) Med Classific ation: Hematolog ical Agents warfarin 5 mg tablet 0 7-30 00:00: 00 03-01 23:59 :00 No [id number] 1 tablet EVERY PM 1 tablet EVERY PM (route: oral) Med Classific ation: Hematolog ical Agents warfarin 5 mg tablet 0 8-06 00:00: 00 03-08 23:59 :00 No [id number] 1 tablet EVERY PM 1 tablet EVERY PM (route: oral) Med Classific ation: Hematolog ical Agents warfarin 5 mg tablet 0 8-13 00:00: 00 03-15 23:59 :00 No [id number] 1 tablet EVERY PM 1 tablet EVERY PM (route: oral) Med Classific ation: Hematolog ical Agents warfarin 5 mg tablet 0 8-20 00:00: 00 03-22 23:59 :00 No [id number] 1 tablet EVERY PM 1 tablet EVERY PM (route: oral) Med Classific ation: Hematolog ical Agents warfarin 5 mg tablet 8-27 00:00: 00 03-23 23:59 :00 No [id number] 0.5 tablet EVERY PM 0.5 tablet EVERY PM (route: oral) Med Classific ation: Hematolog ical Agents warfarin 5 mg tablet 0 8-28 00:00: 00 03-29 23:59 :00 No [id number] 1 tablet EVERY PM 1 tablet EVERY PM (route: oral) Med Classific ation: Hematolog ical Agents warfarin 5 mg tablet 03-30 00:00: 00 03-30 23:59 :00 No [id number] 1.5 tablet EVERY PM 1.5 tablet EVERY PM (route: oral) Med Classific ation: Hematolog ical Agents warfarin 5 mg tablet 03-31 00:00: 00 04-05 23:59 :00 No [id number] 1 tablet EVERY PM 1 tablet EVERY PM (route: oral) Med Classific ation: Hematolog ical Agents WARFARIN ORAL 4-28 00:00: 00 01-31 00:00 :00 No 5 mg1 tab DAILY 5 mg1 tab DAILY (route: ) Med Classific ation: HEMATOLOG ICAL AGENTS BENZONATATE ORAL 4-12 00:00: 00 01-31 00:00 :00 No 100 mg1 cap 3 TIMES DAILY 100 mg1 cap 3 TIMES DAILY (route: ) Med Classific ation: RESPIRATO RY THERAPY AGENTS MUCINEX ORAL 4-12 00:00: 00 01-31 00:00 :00 No 600 mg1 tab EVERY 12 HOURS 600 mg1 tab EVERY 12 HOURS (route: ) Med Classific ation: RESPIRATO RY THERAPY AGENTS Vital Signs Vital Name Observation Time Observation Value Commen ts Temperature 2025-04-06 10:48:00.000 97.6 [degF] Temperature 2025-03-30 13:00:00.000 97.6 [degF] Temperature 2025-03-23 12:45:00.000 97.5 [degF] Temperature 2025-03-16 10:40:00.000 97.4 [degF] Temperature 2025-03-09 10:29:00.000 97.6 [degF] Temperature 2025-03-02 12:37:00.000 97.8 [degF] Temperature 2025-02-23 12:56:00.000 98.7 [degF] Temperature 2025-02-16 08:16:00.000 97.4 [degF] Temperature 2025-02-09 10:40:00.000 97.5 [degF] Pulse 2025-04-06 10:48:00.000 62 /min Pulse 2025-03-30 13:00:00.000 80 /min Pulse 2025-03-23 12:45:00.000 52 /min Pulse 2025-03-16 10:40:00.000 64 /min Pulse 2025-03-09 10:29:00.000 59 /min Pulse 2025-03-02 12:37:00.000 61 /min Pulse 2025-02-23 12:56:00.000 96 /min Pulse 2025-02-16 08:16:00.000 71 /min Pulse 2025-02-09 10:40:00.000 61 /min O2 Saturation (%) 2025-04-06 10:48:00.000 97 % O2 Saturation (%) 2025-03-30 13:00:00.000 95 % O2 Saturation (%) 2025-03-16 10:42:00.000 96 % O2 Saturation (%) 2025-03-09 10:33:00.000 96 % O2 Saturation (%) 2025-03-02 12:39:00.000 95 % O2 Saturation (%) 2025-02-23 12:56:00.000 96 % O2 Saturation (%) 2025-02-16 08:16:00.000 95 % O2 Saturation (%) 2025-02-09 10:40:00.000 96 % Respirations 2025-04-06 10:48:00.000 20 /min Respirations 2025-03-30 13:00:00.000 20 /min Respirations 2025-03-23 12:45:00.000 20 /min Respirations 2025-03-16 10:40:00.000 18 /min Respirations 2025-03-09 10:29:00.000 18 /min Respirations 2025-03-02 12:37:00.000 18 /min Respirations 2025-02-23 12:56:00.000 18 /min Respirations 2025-02-16 08:16:00.000 18 /min Respirations 2025-02-09 10:40:00.000 18 /min Systolic Blood Pressure 2025-04-06 10:48:00.000 104 mm [Hg] Systolic Blood Pressure 2025-03-30 13:00:00.000 100 mm [Hg] Systolic Blood Pressure 2025-03-23 12:45:00.000 120 mm [Hg] Systolic Blood Pressure 2025-03-16 10:40:00.000 118 mm [Hg] Systolic Blood Pressure 2025-03-09 10:29:00.000 122 mm [Hg] Systolic Blood Pressure 2025-03-02 12:40:00.000 122 mm [Hg] Systolic Blood Pressure 2025-02-23 12:56:00.000 110 mm [Hg] Systolic Blood Pressure 2025-02-16 08:18:00.000 120 mm [Hg] Systolic Blood Pressure 2025-02-09 10:43:00.000 132 mm [Hg] Diastolic Blood Pressure 2025-04-06 10:48:00.000 70 mm [Hg] Diastolic Blood Pressure 2025-03-30 13:00:00.000 60 mm [Hg] Diastolic Blood Pressure 2025-03-23 12:45:00.000 80 mm [Hg] Diastolic Blood Pressure 2025-03-16 10:40:00.000 78 mm [Hg] Diastolic Blood Pressure 2025-03-09 10:29:00.000 70 mm [Hg] Diastolic Blood Pressure 2025-03-02 12:40:00.000 60 mm [Hg] Diastolic Blood Pressure 2025-02-23 12:56:00.000 70 mm [Hg] Diastolic Blood Pressure 2025-02-16 08:18:00.000 72 mm [Hg] Diastolic Blood Pressure 2025-02-09 10:43:00.000 76 mm [Hg] Plan of Treatment Planned Activity Planned Date Details Comments Future Scheduled Test SKILLED NU RSE TO EVALUATE PATIENT, IDENTIFY PRIMARY AND CO-MORBID CONDITIONS CODED PER CODING GUIDELINES, AND DEVELOP PATIENT SPECIFIC PLAN OF CARE THAT INCLUDES PATIENT GOAL FOR HOME HEALTH. [code = SKILLED NURSE TO EVALUATE PATIENT, IDENTIFY PRIMARY AND CO-MORBID CONDITIONS CODED PER CODING GUIDELINES, AND DEVELOP PATIENT SPECIFIC PLAN OF CARE THAT INCLUDES PATIENT GOAL FOR HOME HEALTH.] Future Scheduled Test SKILLED NU RSE TO O/A OF PATIENTS MENTAL/BEHAVIORAL STATUS, ASSESS VITAL SIGNS Q VISIT ALLOW 2 PRNS FOR MEDICATION MANAGEMENT. [code = SKILLED NURSE TO O/A OF PATIENTS MENTAL/BEHAVIORAL STATUS, ASSESS VITAL SIGNS Q VISIT ALLOW 2 PRNS FOR MEDICATION MANAGEMENT.] Future Scheduled Test SKILLED NU RSE FOR O/A OF NEUROCOGNITIVE AND BEHAVIORAL STATUS [code = SKILLED NURSE FOR O/A OF NEUROCOGNITIVE AND BEHAVIORAL STATUS] Future Scheduled Test SKILLED NU RSE FOR O/A OF GENERAL HEALTH STATUS OF PAIN, CARDIAC, RESPIRATORY, GASTROINTESTINAL, GENITOURINARY, SKIN, NEUROLOGIC, ENDOCRINE SYSTEMS TO IDENTIFY CHANGES ASSOCIATED WITH EXACERBATION FOR EARLY INTERVENTION OF COMPLICATIONS Q VISIT [code = SKILLED NURSE FOR O/A OF GENERAL HEALTH STATUS OF PAIN, CARDIAC, RESPIRATORY, GASTROINTESTINAL, GENITOURINARY, SKIN, NEUROLOGIC, ENDOCRINE SYSTEMS TO IDENTIFY CHANGES ASSOCIATED WITH EXACERBATION FOR EARLY INTERVENTION OF COMPLICATIONS Q VISIT] Future Scheduled Test SKILLED NU RSE FOR O/A AND SKILLED TEACHING OF COPING SKILLS TO MANAGE ANXIETY AND MAINTAIN SAFETY. [code = SKILLED NURSE FOR O/A AND SKILLED TEACHING OF COPING SKILLS TO MANAGE ANXIETY AND MAINTAIN SAFETY.] Future Scheduled Test SKILLED NU RSE FOR O/A AND SKILLED TEACHING RELATED TO MANAGEMENT OF DEPRESSIVE SYMPTOMS AND/OR DEPRESSION. SN TO REPORT SIGNIFICANT CHANGE IN DEPRESSIVE SYMPTOMS TO CLINICAL PROVIDER FOR EARLY INTERVENTION. [code = SKILLED NURSE FOR O/A AND SKILLED TEACHING RELATED TO MANAGEMENT OF DEPRESSIVE SYMPTOMS AND/OR DEPRESSION. SN TO REPORT SIGNIFICANT CHANGE IN DEPRESSIVE SYMPTOMS TO CLINICAL PROVIDER FOR EARLY INTERVENTION.] Future Scheduled Test SKILLED NU RSE TO PROVIDE TEACHING ON SIGNS AND SYMPTOMS AND MANAGEMENT OF HYPERTENSION. [code = SKILLED NURSE TO PROVIDE TEACHING ON SIGNS AND SYMPTOMS AND MANAGEMENT OF HYPERTENSION.] Future Scheduled Test SKILLED NU RSE TO INSTRUCT PATIENT/CAREGIVER ON SIGNS AND SYMPTOMS AND METHODS TO MANAGE PARKINSON'S DISEASE/TREMORS PROGRESSION. [code = SKILLED NURSE TO INSTRUCT PATIENT/CAREGIVER ON SIGNS AND SYMPTOMS AND METHODS TO MANAGE PARKINSON'S DISEASE/TREMORS PROGRESSION.] Future Scheduled Test SKILLED NU RSE TO PERFORM HOME SAFETY AND FALL ASSESSMENT AND PROVIDE INSTRUCTION TO IMPLEMENT HOME SAFETY AND FALL PREVENTION STRATEGIES. [code = SKILLED NURSE TO PERFORM HOME SAFETY AND FALL ASSESSMENT AND PROVIDE INSTRUCTION TO IMPLEMENT HOME SAFETY AND FALL PREVENTION STRATEGIES.] Future Scheduled Test SKILLED NU RSE TO INSTRUCT PATIENT/CAREGIVER ON COPD TO INCLUDE TEACHING AND SELF-MANAGEMENT RELATED TO COPD DISEASE PROCESS, SIGNS AND SYMPTOMS, AND COMPLICATIONS. [code = SKILLED NURSE TO INSTRUCT PATIENT/CAREGIVER ON COPD TO INCLUDE TEACHING AND SELF-MANAGEMENT RELATED TO COPD DISEASE PROCESS, SIGNS AND SYMPTOMS, AND COMPLICATIONS.] Future Scheduled Test SKILLED NU RSE TO REVIEW PATIENT MEDICATIONS. INSTRUCT PATIENT/CAREGIVER ON MONITORING OF EFFECTIVENESS, ADVERSE DRUG REACTIONS, SIDE EFFECTS OF ALL MEDICATIONS (PRESCRIPTION/-OTC), AND HOW AND WHEN TO REPORT PROBLEMS. [code = SKILLED NURSE TO REVIEW PATIENT MEDICATIONS. INSTRUCT PATIENT/CAREGIVER ON MONITORING OF EFFECTIVENESS, ADVERSE DRUG REACTIONS, SIDE EFFECTS OF ALL MEDICATIONS (PRESCRIPTION/-OTC), AND HOW AND WHEN TO REPORT PROBLEMS.] Future Scheduled Test SKILLED NU RSE TO ASSESS PATIENT S PSYCHOSOCIAL STATUS TO IDENTIFY POTENTIAL ISSUES THAT MAY COMPLICATE THE PROVISION OF THE PLAN OF CARE INCLUDING THE PATIENT S ABILITY TO ACCESS COMMUNITY RESOURCES AND PSYCHOSOCIAL SUPPORT SERVICES. [code = SKILLED NURSE TO ASSESS PATIENT S PSYCHOSOCIAL STATUS TO IDENTIFY POTENTIAL ISSUES THAT MAY COMPLICATE THE PROVISION OF THE PLAN OF CARE INCLUDING THE PATIENT S ABILITY TO ACCESS COMMUNITY RESOURCES AND PSYCHOSOCIAL SUPPORT SERVICES.] Future Scheduled Test SKILLED NU RSE WILL MAINTAIN SITUATIONAL AWARENESS FOR SAFETY AND WILL NOTIFY CLINICAL MASTER FISHER AND PHYSICIAN/PROVIDER WITH ANY CHANGE IN CONDITION. [code = SKILLED NURSE WILL MAINTAIN SITUATIONAL AWARENESS FOR SAFETY AND WILL NOTIFY CLINICAL MASTER FISHER AND PHYSICIAN/PROVIDER WITH ANY CHANGE IN CONDITION.] Goal 2019-07-06 Patient Goal - B E ABLE TO TAKE MEDICATIONS Goal 2024-04-13 Patient Goal - B E ABLE TO REMEMBER TO TAKE MEDICATIONS Goal 2024-02-10 Patient Goal - B E ABLE TO REMEMBER TO TAKE MEDICATIONS Goal 2023-12-12 Patient Goal - B E ABLE TO REMEMBER TO TAKE MEDICATIONS Goal 2023-10-14 Patient Goal - B E ABLE TO REMEMBER TO TAKE MEDICATIONS Goal 2023-08-15 Patient Goal - B E ABLE TO REMEMBER TO TAKE MEDICATIONS Goal 2023-06-17 Patient Goal - B E ABLE TO REMEMBER TO TAKE MEDICATIONS Goal 2023-04-18 Patient Goal - B E ABLE TO REMEMBER TO TAKE MEDICATIONS Goal 2023-02-18 Patient Goal - B E ABLE TO REMEMBER TO TAKE MEDICATIONS Goal 2022-12-17 Patient Goal - B E ABLE TO REMEMBER TO TAKE MEDICATIONS Goal 2022-10-18 Patient Goal - B E ABLE TO REMEMBER TO TAKE MEDICATIONS Goal 2022-08-20 Patient Goal - B E ABLE TO REMEMBER TO TAKE MEDICATIONS Goal 2022-06-21 Patient Goal - B E ABLE TO REMEMBER TO TAKE MEDICATIONS Goal 2022-04-23 Patient Goal - B E ABLE TO REMEMBER TO TAKE MEDICATIONS Goal 2022-02-22 Patient Goal - B E ABLE TO REMEMBER TO TAKE MEDICATIONS Goal 2021-12-25 Patient Goal - B E ABLE TO REMEMBER TO TAKE MEDICATIONS Goal 2021-10-24 Patient Goal - B E ABLE TO REMEMBER TO TAKE MEDICATIONS Goal 2021-08-24 Patient Goal - B E ABLE TO REMEMBER TO TAKE MEDICATIONS Goal 2021-06-26 Patient Goal - B E ABLE TO REMEMBER TO TAKE MEDICATIONS Goal 2021-04-26 Patient Goal - B E ABLE TO REMEMBER TO TAKE MEDICATIONS Goal 2021-02-27 Patient Goal - B E ABLE TO REMEMBER TO TAKE MEDICATIONS Goal 2020-12-29 Patient Goal - B E ABLE TO REMEMBER TO TAKE MEDICATIONS Goal 2020-10-31 Patient Goal - B E ABLE TO REMEMBER TO TAKE MEDICATIONS Goal 2020-08-28 Patient Goal - B E ABLE TO REMEMBER TO TAKE MEDICATIONS Goal 2020-06-29 Patient Goal - B E ABLE TO REMEMBER TO TAKE MEDICATIONS Goal 2020-05-03 Patient Goal - B E ABLE TO REMEMBER TO TAKE MEDICATIONS Goal 2020-03-01 Patient Goal - B E ABLE TO REMEMBER TO TAKE MEDICATIONS Goal 2020-01-04 Patient Goal - B E ABLE TO REMEMBER TO TAKE MEDICATIONS Goal 2019-11-02 Patient Goal - B E ABLE TO REMEMBER TO TAKE MEDICATIONS Goal 2019-09-07 Patient Goal - B E ABLE TO TAKE MEDICATIONS Goal Patient Goal - B E ABLE TO REMEMBER TO TAKE MEDICATIONS Goal 2025-04-06 Patient Goal - B E ABLE TO REMEMBER TO TAKE MEDICATIONS Goal 2025-02-03 Patient Goal - B E ABLE TO REMEMBER TO TAKE MEDICATIONS Goal 2024-12-08 Patient Goal - B E ABLE TO REMEMBER TO TAKE MEDICATIONS Goal 2024-10-06 Patient Goal - B E ABLE TO REMEMBER TO TAKE MEDICATIONS Goal 2024-08-10 Patient Goal - B E ABLE TO REMEMBER TO TAKE MEDICATIONS Goal 2024-06-08 Patient Goal - B E ABLE TO REMEMBER TO TAKE MEDICATIONS Goal Provider Goal - A PLAN OF CARE WILL BE ESTABLISHED THAT MEETS PATIENT'S HALF-WAY NEEDS AND INCLUDES PATIENT GOAL FOR HOME HEALTH. Goal Provider Goal - ALTERED MENTAL/BEHAVIORAL STATUS WILL BE IDENTIFIED PROMPTLY AND INTERVENTION INITIATED QUICKLY TO MINIMIZE ASSOCIATED RISKS THROUGHOUT CERTIFICATION PERIOD. Goal Provider Goal - PATIENT WILL BE ABLE TO PERFORM DAILY FUNCTIONS AND MAINTAIN OPTIMAL BEHAVIORAL/NEUROCOGNITIVE STATUS THROUGHOUT CERTIFICATION PERIOD. Goal Provider Goal - CHANGE IN GENERAL HEALTH STATUS WILL BE IDENTIFIED AND REPORTED TO PHYSICIAN FOR PROMPT INTERVENTION TO MINIMIZE ASSOCIATED RISKS THROUGHOUT CERTIFICATION PERIOD. Goal Provider Goal - PATIENT WILL BE ABLE TO PERFORM DAILY FUNCTIONS AND HAVE OPTIMAL IMPROVEMENT IN LEVEL OF ANXIETY THROUGHOUT CERTIFICATION PERIOD. Goal Provider Goal - PATIENT WILL REMAIN SAFE WITHOUT DECOMPENSATION IN DEPRESSIVE CONDITION, WHILE MAINTAINING OPTIMAL LEVEL OF MENTAL HEALTH AND WELL BEING THROUGHOUT CERTIFICATION PERIOD. Goal Provider Goal - PATIENT/CAREGIVER WILL VERBALIZE SIGNS AND SYMPTOMS OF HYPERTENSION AND WILL BE ABLE TO DEMONSTRATE ABILITY TO MANAGE EXACERBATION BY END OF THE EPISODE. Goal Provider Goal - PATIENT/CAREGIVER WILL VERBALIZE SIGNS AND SYMPTOMS OF PARKINSON'S /TREMORS DISEASE AND DEMONSTRATE METHODS TO MANAGE DISEASE PROCESS BY END OF CERTIFICATION PERIOD. Goal Provider Goal - PATIENT/CAREGIVER WILL VERBALIZE/DEMONSTRATE EFFECTIVE HOME SAFETY AND FALL PREVENTION STRATEGIES THROUGHOUT CERTIFICATION PERIOD. Goal Provider Goal - PATIENT/CAREGIVER WILL VERBALIZE/DEMONSTRATE KNOWLEDGE AND MANAGEMENT OF COPD BY END OF EPISODE. Goal Provider Goal - PATIENT/CAREGIVER WILL VERBALIZE UNDERSTANDING OF EDUCATION PROVIDED ON MEDICATIONS BY THE END OF THE CERTIFICATION PERIOD. Goal Provider Goal - PSYCHOSOCIAL NEEDS WILL BE IDENTIFIED AND PLAN IMPLEMENTED TO MINIMIZE RISK THROUGHOUT CERTIFICATION PERIOD. Goal Provider Goal - PATIENT WILL REMAIN SAFE IN THE COMMUNITY AND WILL BE FREE OF DANGER TO SELF AND OTHERS THROUGHOUT THE CERTIFICATION PERIOD. Progress Notes Progress Notes <paragraph>[Visit Date: 2024 by SILVER MAC RN]:</paragraph><paragraph>SNV NOTE RECERTIFICATION : PATIENT IS 65-YEAR-OLD MALE WITH A LONG HISTORY OF PSYCHIATRIC ILLNESS INCLUDING PTSD, NONPSYCHOTIC MENTAL ILLNESS, ANXIETY. PATIENT ALSO WITH HISTORY OF PAST CVA AND REQUIRES ONGOING USE OF WARFARIN THERAPY WITH INR ASSESSMENT -NEEDED BY NURSING. PATIENT ALSO WITH RECENT DEVELOPMENT OF PARKINSONISM TYPE TREMORS . HAS BEEN FOLLOWING CLOSELY WITH NEUROLOGIST DR. LEANNE MELGOZA. PATIENT RECENTLY HAD MRI DUE TO HIS REQUEST. HE HAS FOLLOW UP WITH NEUROLOGIST NEXT WEEK TO GO OVER RESULTS .PER PATIENT UNDERSTANDING THROUGH PORTAL IT WAS MADE KNOWN TO HIM THE MRI WAS WNL. PATIENT WAS CONCERNED OF ANY CHANGES DUE TO ONGOING TREMORS WHICH HE STATES HAVE GOTTEN PROGRESSIVELY WORSE OVER THE LAST FEW MONTHS. PATIENT STATES HIS NEUROLOGIST HAD ATTRIBUTED THE INCREASE IN TREMORS DUE TO HIS ANXIETY. PATIENT LIVES IN A 2 STORY HOME WITH HIS . SHE IS NOT AVAILABLE ARE WILLING TO ASSIST HIM WITH HIS MEDICATION NEEDS OR WITH HIS ASSISTANCE NEEDED WITH ONGOING INR ASSESSMENT WITH WARFARIN USE. PATIENT DOES HAVE DECREASED INSIGHT AND JUDGMENT INTO DISEASE MANAGEMENT AT TIMES APATHETIC REGARDING SERIOUSNESS OF SYMPTOMOLOGY AND NEEDS RECURRENT REINFORCEMENT WITH ESPECIALLY WITH CHANGES IN NEUROLOGICAL/CARDIAC SYSTEMS. PATIENT VITAL SIGNS ARE STABLE AT THIS TIME PATIENT INR LEVEL IS OUT OF THERAPEUTIC RANGE CURRENTLY READING IS 4.2 PATIENT DENIES ANY CHANGES IN DIET OR TAKING ANY OTHER MEDICATIONS WHICH ARE PRESCRIBED OR ANYTHING [id number]. PATIENT DENIES ANY BLEEDING COMPLICATIONS. LAST WEEK PATIENT'S INR WAS SUB THERAPEUTIC AT 1.3 DUE TO HE HAD FORGOTTEN TO TAKE 1 DOSE OF WARFARIN HE STATES. PATIENT HAS BEEN COMPLIANT WITH INHALERS FOR COPD MAINTENANCE RESPIRATORY STATUS IS STABLE LUNG SOUNDS ARE CLEAR THROUGHOUT. PATIENT DOES CONTINUE TO WALK USUALLY DAILY WEATHER PERMITTING TO ASSIST HIM WITH HIS GAIT INSTABILITY HE HAS BEEN REFUSING PHYSICAL THERAPY IN THE HOME TO ASSIST HIM WITH GAIT STRENGTHENING AND OVERALL MOBILITY. PATIENT DENIES ANY FALLS OR INJURIES. PATIENT AT THIS TIME WOULD BENEFIT FROM CONTINUING TO RECEIVE NURSING SERVICES WEEKLY TO ASSIST HIM WITH MEDICATION AND DISEASE MANAGEMENT INR ASSESSMENT AND OVERSIGHT OF WARFARIN THERAPY ESPECIALLY WITH HIS RECENT NONCOMPLIANCE WITH THIS MEDICATION RESULTING IN A SUB THERAPEUTIC INR .ALSO THIS WEEK CURRENT INR READING IN THE HIGHER RANGE OF 4.2. PATIENT STATES HE HAS BEEN COMPLIANT WITH MEDICATION AND DIETARY RESTRICTIONS BUT THIS IS QUESTIONABLE DUE TO HIS HISTORY OF CVA, INTERMITTENT FORGETFULNESS AND HEIGHTENED ANXIETY WHICH OBSCURES HIS COGNITIVE STATUS. DUE TO PATIENT'S TREMORS HE IS UNABLE TO MANAGE INR ASSESSMENTS WITH COAG MACHINE AT HOME WITHOUT ASSISTANCE. UPDATED PLAN OF CARE GIVEN TO PCP DR CARRANZA AND TO DIRECTOR LIS KEENE RN AT [facility]</paragraph> Encounters Start Date/Time End Date/Time Encounter Type Admission Type Attending Clinicians [facility] Facility Care Department Encounter ID Discharge Date Discharge Status Discharge Condition Discharge Reason Percent Goals Met 2025-02-08 00:00:00 2025-04-08 00:00:00 Outpatient ANKITRTIFIC [facility]IQUIS [facility] [id number] 62.96
== END 2025-04-07 15:46 | disposition home or self-care (01) ==
LOC: HO.HSM 15:31
PROVIDERS: PCP Family Medicine; Visit Provider Psychiatry & Neurology Neurology
DX: G40.419 Other generalized epilepsy and epileptic syndromes, intractable, without status epilepticus (principal); F03.93 Unspecified dementia, unspecified severity, with mood disturbance; R25.1 Tremor, unspecified
CPT/HCPCS: 99214

== ENCOUNTER → 2025-04-07 15:30 | Outpatient (BNVA) | payer MEDICAID, SELFPAY | PROVIDERS: PCP Family Medicine; Visit Provider Psychiatry & Neurology Neurology | DX: Z71.2 Person consulting for explanation of examination or test findings (principal); G40.219 Localization-related (focal) (partial) symptomatic epilepsy and epileptic syndromes with complex partial seizures, intractable, without status epilepticus; F03.90 Unspecified dementia, unspecified severity, without behavioral disturbance, psychotic disturbance, mood disturbance, and anxiety; R25.1 Tremor, unspecified | CPT/HCPCS: 99212 ==